=== PATIENT | female | born 1970 | race Asian ===

== ENCOUNTER 2016-08-21 21:06 | Inpatient (IN) ==
--- NOTE | 2016-08-21 21:04 | OB/GYN History & Physical ---
Date of Encounter: 08/21/16 Time of Encounter: 21:00 Assessment and Plan (1) 35 weeks gestation of Current visit: Yes Status: Acute we will start Magnesium for seizure ppx, give IV labetalol and repeat BP in 10 mins, draw tox labs, we will deliver via RC/S for severe GHTN vs preeclampsia depending on what the labs show after her BP is no more in the severe range, History of Present Illness HPI: Ms. Dot Bermeo is a 45 year old female @ 34+6 weeks who presents to L and D after she had elevated pressures at home. On L and D, we got pressures in the 190's/100s x 2. Patient does not report visual symptoms, epig pain, has some nausea, no headaches, no SOB, no LOF, VB or ctxs, she has a history of a PC /S for breech presentation. She has tachycardia on Metoprolol and Hypothyroidism and is a GDMA1. Past Med Surg Social Fam HX - Past Medical History Medical history: non-contributory, diabetes, hypertension, other - Past Surgical History Surgical History: - Social History Smoking Status: Never smoker Smokeless Tobacco Status: No Alcohol use: none Obstetrical History - Pregnancies : 3 Para: 1 Term: 1 : 0 Ab's: 0 Livin Medications and Allergies cephALEXin [Keflex] 500 mg PO TID #21 capsule 03/03/16 [Rx] Allergies No Known Allergies Allergy (Verified 03/03/16 18:05) Review of System OB All systems PM: reviewed and no additional remarkable complaints except as stated Exam - Constitutional Constitutional: well developed - HEENT HEENT: PERRL - Neck Neck exam: full ROM - Lungs Respiratory exam: CTAB - Cardiovascular Cardiovascular exam: RRR - Abdomen Abdomen: Present: gravid - Extremities Extremities exam: pedal edema Results All other labs normal.
[~2016-08-21 21:06] MED LIST: *HR* Labetalol 20 MG/4 ML SYRINGE IVP ONE; Famotidine 20 MG/2 ML VIAL IVP PRN; Naloxone 0.4 MG/ML INJ IVP PRN
[2016-08-21] MEDS ORDERED: Ringers Solution, Lactated 1,000 ML ONE ×2 (21:08→23:30)
[2016-08-21] MEDS ORDERED: *HR* Labetalol 20 MG/4 ML SYRINGE IVP ONE (21:08)
[2016-08-21 21:15] LABS: Basophils % 0.2 %; Eosinophils # 0.1 K/mcL (0.0-0.6); Eosinophils % 0.8 %; Hematocrit 40.8 % (35.3-44.9); Hemoglobin 13.7 g/dL (11.5-15.4); Immature Granulocytes % 0.3 % (0-4); Lymphocytes # 2.2 K/mcL (0.6-4.6); Lymphocytes % 33.4 %; Mean Corpuscular HGB Conc 33.6 g/dL (31.6-35.5); Mean Corpuscular Hemoglobin 29.5 pg (28.0-33.3); Mean Corpuscular Volume 87.7 fL (83.0-100.0); Mean Platelet Volume 14.1 fL (9.4-12.4); Monocytes # 0.5 K/mcL (0.0-1.3); Monocytes % 7.2 %; Neutrophils # 3.8 K/mcL (1.6-8.9); Platelet Count 109 K/mcL (140-400); Red Blood Count 4.65 M/mcL (3.82-4.97); Red Cell Distribution Width 13.2 % (11.5-14.5); Segmented Neutrophils % 58.1 %
[2016-08-21 21:29] LABS: Alanine Aminotransferase 13 Units/L (0-55); BUN/Creatinine Ratio 13 (6-26); Blood Urea Nitrogen 9 mg/dL (7-20); eGFR For African Americans > 60 (> 60); eGFR For Non-African Americans > 60 (> 60)
[2016-08-21 21:32] LABS: Aspartate Amino Transferase 27 Units/L (5-34)
[2016-08-21 21:33] LABS: Lactate Dehydrogenase 307 Units/L (159-327)
[2016-08-21] MEDS: *HR* Labetalol 20 MG/4 ML SYRINGE IVP ONE ×2 (21:39→22:14)
[2016-08-21] MEDS: Magnesium Sulfate 20 gm/500mL 20 GM/500 ML IV.SOLN IVC SCH ×2 (21:50→21:57)
[2016-08-21] MEDS ORDERED: Metoclopramide 10 MG/2 ML VIAL IVP ONE (21:50)
[2016-08-21 22:04] LABS: Protein/Creatinine Ratio,Urine 0.68 mg/mg (0-0.20)
--- NOTE | 2016-08-21 22:19 | Anesthesia Evaluation PreOp ---
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: Denies Any Significant HX Other Medical History: Diabetes Type II (gestational), Thyroid (hyperthyroidism , treated with antithyroid agent and since euthyroid) Anesthesia History: No Prior Anesthetic Complications, Past Anesthesia (no prior anesthetics, no family history of problems) : Yes (34 plus 6, ) Alcohol Use: none Drug use: none Medications and Allergies No Known Home Drugs 08/21/16 [History] Allergies No Known Allergies Allergy (Verified 03/03/16 18:05) - Meds/Allergy Pre-op Review Medications Reviewed: Yes Allergies Reviewed: Yes Beta Blockers on Current Med List: No Anesthesia Results - Labs 08/21/16 21:00 08/21/16 21:00 Anesthesia Exam O2 Sat Height 1.6 m Weight 89 kg bp 172/99 hr 76 rr 20 spo2 98 Height: 63 Weight: 89 NPO (# of Hours): 4.5 hours ago had a full meal Pain Scale: 1 - HEENT Pupil (Motor): Pupils equal Mallampati: II Teeth: Normal Oral Opening: Greater than 3 - JEWEL LATHE OPERATOR LOC: Oriented JEWEL LATHE OPERATOR Motor: Normal RUE, Normal LUE, Normal RLE, Normal LLE, Normal Face JEWEL LATHE OPERATOR Sensory: Normal: RUE, LUE, RLE, LLE, Face - Cardiac Rhythm: Regular Murmur: None JVD: No Carotid Bruit: No - Pulmonary Breath Sounds: bilateral Clear Respiratory Effort: Symmetrical Anesthesia Assess/Plan ASA Score: 3 (Uncontrolled hypertension with steady decline in PLT count over the last several weeks. After lengthy discussion with Dr Mackey about patient's recent meal and balancing the risk of aspiration with the risk of eclampsia d/t uncontrolled HTN it is agreed to proceed with cesarian section. All risks discussed at bedside with patient.), E Modified Sagar Scale for Level of Consciousness: Cooperative, oriented, and tranquil Anesthetic Plan: Regional Monitoring Plan: Standard Monitors Recovery Plan: PACU
--- NOTE | 2016-08-21 22:20 | OB Labor Progress Note ---
Date of Encounter: 08/21/16 Time of Encounter: 22:17 Labor Progress Note - Subjective Subjective: patient now on Mg - Vital Signs Vital Signs: BP labile, s/p 20mg and 40mg IV labetalol, range is from 130's-170's systolic - Heart Tones Heart Tones: FHT CAT 1 - Plan Plan: based on labs, patient has preeclampsia with severe features so we will be proceeding to delivery via RC/S, patient to continue on MG for seizure ppx
[2016-08-21] MEDS ORDERED: *HR* Oxytocin 10 UNIT/ML VIAL IM ONE (22:26)
[2016-08-21] MEDS ORDERED: *HR* Morphine Sulfate/PF 5 MG/10 ML AMPUL ONE (22:30)
[2016-08-21] MEDS ORDERED: EPHEDrine 50 MG/ML VIAL ONE (22:33)
[2016-08-21] MEDS ORDERED: Ondansetron 4 MG/2 ML VIAL IVP ONE (23:39)
[2016-08-21] MEDS ORDERED: *HR* Morphine 2 MG/ML SYRINGE IVP PRN (23:39)
[2016-08-21] MEDS ORDERED: *HR* Labetalol 100 MG/20 ML MDV IVP PRN (23:39)
[2016-08-22] MEDS ORDERED: Simethicone 80 MG TAB.CHEW PO PRN (00:41)
[2016-08-22] MEDS ORDERED: Ondansetron 4 MG/2 ML VIAL IVP PRN (00:41)
[2016-08-22] MEDS ORDERED: Metoclopramide 10 MG/2 ML VIAL IVP PRN (00:41)
--- NOTE | 2016-08-22 00:41 | OB/GYN Procedure Note ---
Section - Date of procedure: 08/22/16 Preop diagnosis: desires repeat , other Post-op diagnosis: same Procedure: repeat low transverse Surgeon: Darron Díaz Estimated blood loss (cc): 800 Anesthesia Type: Spinal section complications: none Disposition: L&D Recovery Room Specimens: Placenta, Cord blood - Infant (s) A Infant Delivery Date: 08/22/16 Infant Delivery Time: 23:45 Presentation: vertex Position: OA Route of delivery: other Gender: Female Viability: Viable Pounds: 6 Ounces: 4 Specimens collected: cord blood Placenta: uterine exploration Cord: 3 umbilical vessels - Narrative Narrative: Patient was brought to the operating room where spinal anesthesia was administered without difficulty. The abdomen was prepped and draped in a sterile fashion. A Pfannenstiel incision was made and carried sharply down to the level of fascia. The fascia was incised transversely. The fascia was dissected away from the underlying rectus muscles. With sharp and blunt dissection, rectus muscles were divided in midline. The perineum was entered bluntly. A transverse incision was made across the bladder peritoneum. The bladder was dissected away from the underlying lower uterine segment. Bladder retractor was placed to protect the bladder. The lower uterine segment was entered sharply with a scalpel. Incision was manually extended. Clear amniotic fluid was encountered. The 's head was pulled up and delivered easily as were the shoulders and body. The mouth and oropharynx were suctioned. The cord was clamped and cut. The infant was passed off to the waiting textile examiner in satisfactory condition. Placenta was extracted completely and found to be intact. Uterus was explored and found to be empty. Uterus was delivered through the abdominal incision and massaged vigorously. Intravenous Pitocin was administered. Clamps were placed about the margins of the uterine incision, which was closed primarily with a running locking stitch of 0 Vicryl with adequate hemostasis. Secondary running locking stitch was placed for extra strength to the wound. The uterus was returned to its proper anatomic position in the abdomen. The fascia was closed with a simple running stitch of 0 vicryl. The subcutaneous tissue was closed with 3-0 vicryl. The skin was closed with running subcuticular of 4-0 vicryl. Patient was brought to the recovery room in satisfactory condition. There were no complications. All sponge, needle, and instrument counts were reported to be correct.
[2016-08-22] MEDS ORDERED: Oxytocin 20 units/ LR 1000 mL 20 UNIT/1,000 ML BAG IVC SCH (00:45)
[2016-08-22] MEDS ORDERED: Ringers Solution, Lactated 1,000 ML IVC SCH (00:45)
[2016-08-22] MEDS ORDERED: *HR* Morphine 2 MG/ML SYRINGE IVP PRN (00:55)
[2016-08-22] MEDS ORDERED: Calcium Gluconate 1,000 MG/10 ML VIAL IVPB ONE (03:05)
--- NOTE | 2016-08-22 07:11 | Anesthesia Evaluation Post Op ---
Date of Encounter: 08/22/16 Time of Encounter: 07:11 - Vital Signs Vital Signs: Vital Signs/O2 Sat, Most Current Temp Pulse Resp BP Pulse Ox 97.9 F 82 16 137/88 96 08/22/16 05:43 08/22/16 06:48 08/22/16 06:48 08/22/16 06:48 08/22/16 05:43 - Lungs Lungs: Clear Ascult./Percussion - Airway Airway: Non-obstructed - Cardiovascular Regular Rate - Mental Status Mental Status: Alert & Oriented, Answers Appropriately - Pain Pain Scale: 0 - Nausea Vomiting Nausea Vomiting: Not Present - Hydration Hydration: Tolerates oral liquids, Sheldon catheter - Discharge PostOp Status: Transfer Patient to floor
[2016-08-22] MEDS: Prenatal Vit/FA 1 EACH TABLET PO SCH (08:09)
[2016-08-22] MEDS: Magnesium Sulfate 20 gm/500mL 20 GM/500 ML IV.SOLN IVC SCH (08:10)
[2016-08-22 09:01] LABS: Basophils % 0.2 %; Eosinophils % 0.1 %; Hematocrit 39.4 % (35.3-44.9); Hemoglobin 13.4 g/dL (11.5-15.4); Immature Granulocytes % 0.2 % (0-4); Immature Platelets 27.6 % (1.1-6.1); Lymphocytes # 1.5 K/mcL (0.6-4.6); Lymphocytes % 12.2 %; Mean Corpuscular Hemoglobin 29.9 pg (28.0-33.3); Mean Corpuscular Volume 87.9 fL (83.0-100.0); Mean Platelet Volume 13.5 fL (9.4-12.4); Monocytes # 0.5 K/mcL (0.0-1.3); Monocytes % 3.7 %; Neutrophils # 10.3 K/mcL (1.6-8.9); Platelet Count 106 K/mcL (140-400); Red Blood Count 4.48 M/mcL (3.82-4.97); Red Cell Distribution Width 13.1 % (11.5-14.5); Segmented Neutrophils % 83.6 %
[2016-08-22 09:13] LABS: Alanine Aminotransferase 12 Units/L (0-55); Aspartate Amino Transferase 26 Units/L (5-34); BUN/Creatinine Ratio 10 (6-26); Blood Urea Nitrogen 7 mg/dL (7-20); Uric Acid 5.3 mg/dL (2.6-6.0); eGFR For African Americans > 60 (> 60); eGFR For Non-African Americans > 60 (> 60)
[2016-08-22 09:14] LABS: Lactate Dehydrogenase 369 Units/L (159-327)
--- NOTE | 2016-08-22 12:00 | OB/GYN Progress Note ---
Date of Encounter: 08/22/16 Time of Encounter: 11:58 - Assessment and Plan (1) Status post repeat low transverse section Current Visit: Yes Status: Acute Patient is doing well postoperatively. (2) Pre-eclampsia, Current Visit: Yes Status: Acute Patient is now having rebounding hypertension. Labetalol has been initiated. Magnesium will be discontinued after 24 hours. Appropriate urine output. Repeat labs tomorrow (3) Thrombocytopenia complicating Current Visit: Yes Status: Acute This has remained stable prior to and after repeat . Continue to monitor Subjective - Subjective Principal diagnosis: POD1/PPD1 Interval history: Patient is day one/postop day 1 for repeat for severe preeclampsia. She is on magnesium. Her blood pressures have started to increase today and she has been started on labetalol 100 mg every 12 hours. She started breaking through and having blood pressures of 150s over high 80s and the labetalol has since been increased to 200 every 12. She denies headache , blurred vision or epigastric pain. She states that she feels much better with the magnesium this than with her previous . She denies any /postoperative pain. She reports her vaginal bleeding is minimal. She denies any flatus. Patient reports: appetite normal, voiding normally (Good urine output, urine clear in Sheldon), pain well controlled, no nauseated : doing well Objective - Vital Signs Latest vital signs: Vital Signs Temp Pulse Pulse Resp BP Pulse Ox 08/22/16 10:45 82 14 152/89 08/22/16 09:45 88 16 147/87 08/22/16 08:40 88 16 147/87 08/22/16 07:40 83 83 16 145/95 08/22/16 06:48 82 16 137/88 08/22/16 05:43 97.9 F 85 16 131/81 96 08/22/16 04:46 97.6 F 87 16 148/69 96 08/22/16 03:50 16 08/22/16 03:46 97.5 F L 79 16 142/87 97 08/22/16 03:42 79 16 142/87 08/22/16 03:12 97.3 F L 76 16 146/96 96 08/22/16 02:42 97.4 F L 71 16 156/94 96 08/22/16 01:40 70 14 157/96 08/22/16 00:40 75 14 122/84 Intake and Output 08/21/16 08/22/16 08/22/16 23:59 07:59 15:59 Intake Total 100 / 100 500 / 500 240 / 240 Output Total 2170 / 2170 300 / 300 Balance 100 / 100 -1670 / -1670 -60 / -60 Intake: IV Fluids 100 / 100 500 / 500 Magnesium Sulfate Premix 500 / 500 20 gm/500mL 20 gm In 500 ml @ 2 GM/HR 50 mls/hr IVC .Q10H [facility] Rx#: [id number] Magnesium Sulfate Premix 100 / 100 4gm/100mL 4 gm In 100 ml @ 200 mls/hr IVPB ONCE ONE Rx#:[id number] Oral 0 / 0 240 / 240 Output: Urine 1370 / 1370 300 / 300 Emesis 300 / 300 Catheter 500 / 500 Other: Meal Breakfast Percent of Meal Consumed 30% Weight 89 kg 86.4 kg Patient Weight 08/22/16 23:59 Weight 86.4 kg - Exam Lungs: bilateral: normal Chest: Normal S1, Normal S2 Extremities: Present: edema (1+ pretibial bilaterally). Absent: tenderness Abdomen: Present: normal appearance, soft. Absent: distention (Bowel sounds present), tenderness Incision: Present: dressed (An edge of serous sanguinous fluid friedman the inferior margin of the dressing. This is not extended since marked) Uterus: Present: firm - Labs Labs: Laboratory Results - last 24 hr 08/21/16 08/21/16 08/21/16 21:00 21:00 21:45 WBC 6.5 RBC 4.65 Hgb 13.7 Hct 40.8 MCV 87.7 MCH 29.5 MCHC 33.6 RDW 13.2 Plt Count 109 L MPV 14.1 H Immature Gran % 0.3 Seg Neutrophils % 58.1 Lymphocytes % 33.4 Monocytes % 7.2 Eosinophils % 0.8 Basophils % 0.2 Neutrophils # 3.8 Lymphocytes # 2.2 Monocytes # 0.5 Eosinophils # 0.1 Basophils # 0.0 Immature Plt Fraction BUN 9 Creatinine 0.70 Est GFR ( Amer) > 60 Est GFR (Non-Af Amer) > 60 BUN/Creatinine Ratio 13 Uric Acid 5.0 AST 27 ALT 13 Lactate Dehydrogenase 307 Urine Creatinine 38 Protein/Creatinin Ratio 0.68 H Urine Total Protein 26 H 08/22/16 08/22/16 08:53 08:53 WBC 12.3 H D RBC 4.48 Hgb 13.4 Hct 39.4 MCV 87.9 MCH 29.9 MCHC 34.0 RDW 13.1 Plt Count 106 L MPV 13.5 H Immature Gran % 0.2 Seg Neutrophils % 83.6 Lymphocytes % 12.2 Monocytes % 3.7 Eosinophils % 0.1 Basophils % 0.2 Neutrophils # 10.3 H Lymphocytes # 1.5 Monocytes # 0.5 Eosinophils # 0.0 Basophils # 0.0 Immature Plt Fraction 27.6 H BUN 7 Creatinine 0.71 Est GFR ( Amer) > 60 Est GFR (Non-Af Amer) > 60 BUN/Creatinine Ratio 10 Uric Acid 5.3 AST 26 ALT 12 Lactate Dehydrogenase 369 H Urine Creatinine Protein/Creatinin Ratio Urine Total Protein - Allied health notes Allied health notes reviewed: nursing
[2016-08-22] MEDS: *HR* OxyCODONE/APAP 5/325 TABLET PO PRN (20:58)
[2016-08-23] MEDS: *HR* OxyCODONE/APAP 5/325 TABLET PO PRN ×3 (02:52→12:31)
[2016-08-23 05:54] LABS: Basophils % 0.1 %; Eosinophils % 0.3 %; Hematocrit 38.3 % (35.3-44.9); Hemoglobin 12.9 g/dL (11.5-15.4); Immature Granulocytes % 0.3 % (0-4); Lymphocytes # 1.4 K/mcL (0.6-4.6); Lymphocytes % 13.7 %; Mean Corpuscular HGB Conc 33.7 g/dL (31.6-35.5); Mean Corpuscular Volume 89.1 fL (83.0-100.0); Mean Platelet Volume 13.6 fL (9.4-12.4); Monocytes # 0.4 K/mcL (0.0-1.3); Monocytes % 4.3 %; Neutrophils # 8.2 K/mcL (1.6-8.9); Platelet Count 113 K/mcL (140-400); Red Cell Distribution Width 13.3 % (11.5-14.5); Segmented Neutrophils % 81.3 %
[2016-08-23 06:11] LABS: Alanine Aminotransferase 14 Units/L (0-55); Aspartate Amino Transferase 26 Units/L (5-34); BUN/Creatinine Ratio 9 (6-26); Blood Urea Nitrogen 7 mg/dL (7-20); Uric Acid 6.1 mg/dL (2.6-6.0); eGFR For African Americans > 60 (> 60); eGFR For Non-African Americans > 60 (> 60)
[2016-08-23 06:13] LABS: Lactate Dehydrogenase 391 Units/L (159-327)
--- NOTE | 2016-08-23 07:57 | OB/GYN Progress Note ---
Date of Encounter: 08/23/16 Time of Encounter: 07:55 - Assessment and Plan (1) Pre-eclampsia, Current Visit: Yes Status: Acute Continue current treatment plan. Repeat labs in AM (2) Status post repeat low transverse section Current Visit: Yes Status: Acute Stable POD #2. Continue current management. PIH labs in AM. Subjective - Subjective Interval history: Pt states feel well. Pain well managed on po pain medication. Pt states still has slightly blurry vision from magnesium, denies headache or epigastric pain. Up and ambulates well. infant in NICU Patient reports: appetite normal, voiding normally, pain well controlled, ambulating normally Sabina: doing well, in NICU Objective - Vital Signs Latest vital signs: Vital Signs Temp Pulse Resp BP Pulse Ox 08/23/16 03:00 97.9 F 86 14 158/71 95 08/22/16 23:45 98.2 F 85 16 145/86 94 08/22/16 22:56 93 16 130/88 95 08/22/16 22:45 93 16 130/88 08/22/16 21:45 82 14 137/89 95 08/22/16 20:45 98.9 F 87 16 168/88 94 08/22/16 20:40 87 16 168/88 94 08/22/16 19:35 87 16 149/81 08/22/16 19:32 98.2 F 87 16 149/81 93 08/22/16 18:40 86 14 130/83 08/22/16 17:40 101 14 131/74 08/22/16 16:40 96 14 128/81 08/22/16 14:45 83 16 144/88 08/22/16 13:40 83 14 144/85 08/22/16 12:40 105 16 160/93 08/22/16 11:40 83 16 158/94 08/22/16 10:45 82 14 152/89 08/22/16 09:45 88 16 147/87 08/22/16 08:40 88 16 147/87 Intake and Output 08/22/16 08/22/16 08/23/16 15:59 23:59 07:59 Intake Total 1700 / 1700 1000 / 1000 Output Total 1115 / 1115 2775 / 2775 1200 / 1200 Balance 585 / 585 -2775 / -2775 -200 / -200 Intake: IV Fluids 920 / 920 Pitocin 20 unit In 1,000 920 / 920 ml @ 125 mls/hr IVC .Q8H [facility] Rx#:[id number] Oral 780 / 780 1000 / 1000 Output: Urine 1115 / 1115 2775 / 2775 1200 / 1200 Other: Meal Lunch Percent of Meal Consumed 100% Weight 82.9 kg Patient Weight 08/23/16 23:59 Weight 82.9 kg - Exam Lungs: bilateral: normal Chest: Normal S1, Normal S2 Extremities: Present: normal Abdomen: Present: normal appearance, soft Incision: Present: dressed (small amount of dried drainage noted) Uterus: Present: normal, firm - Labs Labs: Laboratory Results - last 24 hr 08/22/16 08/22/16 08/23/16 08:53 08:53 05:26 WBC 12.3 H D 10.1 RBC 4.48 4.30 Hgb 13.4 12.9 Hct 39.4 38.3 MCV 87.9 89.1 MCH 29.9 30.0 MCHC 34.0 33.7 RDW 13.1 13.3 Plt Count 106 L 113 L MPV 13.5 H 13.6 H Immature Gran % 0.2 0.3 Seg Neutrophils % 83.6 81.3 Lymphocytes % 12.2 13.7 Monocytes % 3.7 4.3 Eosinophils % 0.1 0.3 Basophils % 0.2 0.1 Neutrophils # 10.3 H 8.2 Lymphocytes # 1.5 1.4 Monocytes # 0.5 0.4 Eosinophils # 0.0 0.0 Basophils # 0.0 0.0 Immature Plt Fraction 27.6 H BUN 7 Creatinine 0.71 Est GFR ( Amer) > 60 Est GFR (Non-Af Amer) > 60 BUN/Creatinine Ratio 10 Uric Acid 5.3 AST 26 ALT 12 Lactate Dehydrogenase 369 H 08/23/16 05:26 WBC RBC Hgb Hct MCV MCH MCHC RDW Plt Count MPV Immature Gran % Seg Neutrophils % Lymphocytes % Monocytes % Eosinophils % Basophils % Neutrophils # Lymphocytes # Monocytes # Eosinophils # Basophils # Immature Plt Fraction BUN 7 Creatinine 0.76 Est GFR ( Amer) > 60 Est GFR (Non-Af Amer) > 60 BUN/Creatinine Ratio 9 Uric Acid 6.1 H AST 26 ALT 14 Lactate Dehydrogenase 391 H
[2016-08-23] MEDS ORDERED: Lanolin 28 GM TUBE TP PRN (08:00)
[2016-08-23] MEDS: Prenatal Vit/FA 1 EACH TABLET PO SCH (08:10)
[2016-08-23] MEDS: Ibuprofen 600 MG TABLET PO PRN ×2 (12:34→20:10)
[2016-08-24] MEDS: Ibuprofen 600 MG TABLET PO PRN ×2 (02:32→08:01)
[2016-08-24 03:35] LABS: Basophils % 0.1 %; Eosinophils # 0.1 K/mcL (0.0-0.6); Eosinophils % 1.2 %; Hematocrit 35.2 % (35.3-44.9); Hemoglobin 11.6 g/dL (11.5-15.4); Immature Granulocytes % 0.2 % (0-4); Lymphocytes # 2.3 K/mcL (0.6-4.6); Lymphocytes % 25.7 %; Mean Corpuscular Hemoglobin 29.5 pg (28.0-33.3); Mean Corpuscular Volume 89.6 fL (83.0-100.0); Mean Platelet Volume 12.9 fL (9.4-12.4); Monocytes # 0.5 K/mcL (0.0-1.3); Monocytes % 5.3 %; Neutrophils # 6.1 K/mcL (1.6-8.9); Platelet Count 131 K/mcL (140-400); Red Blood Count 3.93 M/mcL (3.82-4.97); Red Cell Distribution Width 13.4 % (11.5-14.5); Segmented Neutrophils % 67.5 %
[2016-08-24 03:49] LABS: Alanine Aminotransferase 12 Units/L (0-55); Aspartate Amino Transferase 22 Units/L (5-34); BUN/Creatinine Ratio 14 (6-26); Blood Urea Nitrogen 11 mg/dL (7-20); Lactate Dehydrogenase 311 Units/L (159-327); Uric Acid 6.3 mg/dL (2.6-6.0); eGFR For African Americans > 60 (> 60); eGFR For Non-African Americans > 60 (> 60)
[2016-08-24] MEDS: Prenatal Vit/FA 1 EACH TABLET PO SCH (08:02)
--- NOTE | 2016-08-24 09:35 | Discharge Summary ---
Date of Encounter: 08/24/16 Time of Encounter: 09:33 - Discharge Diagnosis (1) Pre-eclampsia, Priority: Secondary Status: Acute Comments: VSS Will discharge home on labetalol F/U in office in 2 weeks for blood pressure check (2) Status post repeat low transverse section Priority: Primary Status: Acute Comments: Doing well on post-op day 3. Pain well controlled VSS No difficulty urinating, has had 3 bowel movements Lochia light and without clots Discharge home today with baby (3) Thrombocytopenia complicating Priority: Secondary Status: Acute Comments: Labs stable - Discharge Medications Prescriptions: OxyCODONE/APAP 5/325 [Percocet 5/325 MG] 1 each PO Q4HR PRN #30 tablet PRN Reason: Moderate pain 4-6 Ibuprofen [Motrin] 600 mg PO Q6HR PRN #60 tablet PRN Reason: Pain Docusate [Colace] 100 mg PO BID #30 capsule Labetalol [Trandate] 200 mg PO BID 60 Days Home Medications: Breast Pump [BREAST PUMP] 1 each .ROUTE AD #1 each 08/24/16 [Rx] Docusate [Colace] 100 mg PO BID #30 capsule 08/24/16 [Rx] Ferrous Sulfate 325 mg PO DAILY tablet 08/24/16 [Rx] Ibuprofen [Motrin] 600 mg PO Q6HR PRN #60 tablet 08/24/16 [Rx] Labetalol [Trandate] 200 mg PO BID 60 Days 08/24/16 [Rx] Lanolin 1 appl TP QID PRN #0 tube 08/24/16 [Rx] OxyCODONE/APAP 5/325 [Percocet 5/325 MG] 1 each PO Q4HR PRN #30 tablet 08/24/16 [Rx] Vit/FA 1 each PO DAILY #0 tablet 08/24/16 [Rx] Simethicone [Gas-X] 80 mg PO TID PRN #0 tab.chew 08/24/16 [Rx] Allergies/Adverse Reactions: Allergies No Known Allergies Allergy (Verified 03/03/16 18:05) Data Procedures and tests throughout hospitalization: Laboratory Tests 08/21/16 08/21/16 08/21/16 21:00 21:00 21:45 WBC 6.5 RBC 4.65 Hgb 13.7 Hct 40.8 MCV 87.7 MCH 29.5 MCHC 33.6 RDW 13.2 Plt Count 109 L MPV 14.1 H Immature Gran % 0.3 Seg Neutrophils % 58.1 Lymphocytes % 33.4 Monocytes % 7.2 Eosinophils % 0.8 Basophils % 0.2 Neutrophils # 3.8 Lymphocytes # 2.2 Monocytes # 0.5 Eosinophils # 0.1 Basophils # 0.0 Immature Plt Fraction BUN 9 Creatinine 0.70 Est GFR ( Amer) > 60 Est GFR (Non-Af Amer) > 60 BUN/Creatinine Ratio 13 Uric Acid 5.0 AST 27 ALT 13 Lactate Dehydrogenase 307 Urine Creatinine 38 Protein/Creatinin Ratio 0.68 H Urine Total Protein 26 H 08/22/16 08/22/16 08/23/16 08:53 08:53 05:26 WBC 12.3 H D 10.1 RBC 4.48 4.30 Hgb 13.4 12.9 Hct 39.4 38.3 MCV 87.9 89.1 MCH 29.9 30.0 MCHC 34.0 33.7 RDW 13.1 13.3 Plt Count 106 L 113 L MPV 13.5 H 13.6 H Immature Gran % 0.2 0.3 Seg Neutrophils % 83.6 81.3 Lymphocytes % 12.2 13.7 Monocytes % 3.7 4.3 Eosinophils % 0.1 0.3 Basophils % 0.2 0.1 Neutrophils # 10.3 H 8.2 Lymphocytes # 1.5 1.4 Monocytes # 0.5 0.4 Eosinophils # 0.0 0.0 Basophils # 0.0 0.0 Immature Plt Fraction 27.6 H BUN 7 Creatinine 0.71 Est GFR ( Amer) > 60 Est GFR (Non-Af Amer) > 60 BUN/Creatinine Ratio 10 Uric Acid 5.3 AST 26 ALT 12 Lactate Dehydrogenase 369 H Urine Creatinine Protein/Creatinin Ratio Urine Total Protein 08/23/16 08/24/16 08/24/16 05:26 03:26 03:26 WBC 9.0 RBC 3.93 Hgb 11.6 Hct 35.2 L MCV 89.6 MCH 29.5 MCHC 33.0 RDW 13.4 Plt Count 131 L MPV 12.9 H Immature Gran % 0.2 Seg Neutrophils % 67.5 Lymphocytes % 25.7 Monocytes % 5.3 Eosinophils % 1.2 Basophils % 0.1 Neutrophils # 6.1 Lymphocytes # 2.3 Monocytes # 0.5 Eosinophils # 0.1 Basophils # 0.0 Immature Plt Fraction BUN 7 11 Creatinine 0.76 0.77 Est GFR ( Amer) > 60 > 60 Est GFR (Non-Af Amer) > 60 > 60 BUN/Creatinine Ratio 9 14 Uric Acid 6.1 H 6.3 H AST 26 22 ALT 14 12 Lactate Dehydrogenase 391 H 311 Urine Creatinine Protein/Creatinin Ratio Urine Total Protein Labs on day of discharge: Labs from last 24 hours 08/24/16 08/24/16 03:26 03:26 WBC 9.0 RBC 3.93 Hgb 11.6 Hct 35.2 L MCV 89.6 MCH 29.5 MCHC 33.0 RDW 13.4 Plt Count 131 L MPV 12.9 H Immature Gran % 0.2 Seg Neutrophils % 67.5 Lymphocytes % 25.7 Monocytes % 5.3 Eosinophils % 1.2 Basophils % 0.1 Neutrophils # 6.1 Lymphocytes # 2.3 Monocytes # 0.5 Eosinophils # 0.1 Basophils # 0.0 BUN 11 Creatinine 0.77 Est GFR ( Amer) > 60 Est GFR (Non-Af Amer) > 60 BUN/Creatinine Ratio 14 Uric Acid 6.3 H AST 22 ALT 12 Lactate Dehydrogenase 311 Date of admission: 08/21/16 21:06 Primary care physician: PCP JOSE Discharging clinician: Sameera Russell Anticipated date of discharge: 08/24/16 - Patient Status Disposition: Home, Self-Care Condition: Good Functional capacity at discharge: independent ambulation - Discharge Instructions Follow Up With: JOSE,PCP [Primary Care Provider] - Darron Díaz MD [Partnered Physician] - Additional Instructions: Perineal Care: Always wipe front to back Change your pad frequently Use your jose bottle with warm water and spray front to back Do not douche, use tampons, have sexual intercourse or put anything in your vagina for 4-6 weeks after delivery Bleeding: Vaginal bleeding can last up to 6 weeks Your menstrual period may return as early as 6 weeks after you are discharged from the hospital Breanna/Stitches Care: Vaginal Delivery Vaginal stitches will dissolve within 4-6 weeks Follow perineal care instructions Care Stitches will dissolve on their own If you have breanna, they will need to be removed in the doctors office within 5-7 days. You may shower with stitches or breanna Drip plan or soapy water over the incision to clean. Pat dry gently with a clean towel. Make sure you completely dry under the skin folds DO NOT USE powders, lotions, rubbing alcohol or hydrogen peroxide on or around your incision. This will slow your wound healing It is normal to have soreness, burning, tingling, itchiness and/or numbness as your incision heals Activity: Rest frequently Do not lift anything heavier than a gallon of milk, up to 10-15 pounds No driving for 1-2 weeks for Vaginal delivery No driving for 2-4 weeks for delivery Take stairs slowly, one at a time Gradually increase your daily activity until you are back to your normal routine Do not exercise until you have had your follow-up appointment Bathing: Take a shower daily Do not take a tub bath for the first 4 weeks Diet: Drink plenty of water and fruit juices Eat a well-balanced diet with foods high in fiber such as fruits and vegetables Depression: Your hormones have a major impact on your feelings and emotions. Hormone imbalance may cause changes in your mood, creating unfamiliar thoughts and actions. Support is available to help you understand and cope with these feelings and mood changes. If you answer yes to any of the following questions, please call your health care provider: Are you having trouble sleeping? Are you feeling isolated? Have you lost your appetite? Are you having thoughts of hurting yourself or others? WARNING SIGNS: Heavy bleeding from the vagina (blood is bright red and soaks a sanitary pad in an hour or less.) Passing a blood clot larger than your fist Discharge from the vagina that has a bad odor Temperature over 100.4 F, or if you feel cold and have chills An episiotomy site that is warm, swollen or oozing. Use a mirror if needed Urination (pee) that is painful, very red and swollen or leaking fluid An incision that is painful, very red and swollen and leaking fluid An incision that has come open Breasts that are painful or full with flu like symptoms Redness, warmth or swelling in the calf of your leg Trouble breathing, dizziness, visual disturbance or faintness *Notify your health care provider immediately or go to the nearest Emergency Room if you experience any of the above signs.* To contact the nurses station 24 hours a day, For non-urgent, routine questions, please call the office at - Diet and Activity Activity: increase activity as tolerated Diet: regular diet Hospital Course Reason for admission: IUP - , section, pre-eclampsia Delivery: section Episiotomy: none Laceration: none Other procedures: none complications: none Discharge diagnosis: delivery [place] baby: female Time Attestation: Total time spent providing and/or coordinating discharge services: Time Spent: Less than 30 minutes - VTE Documentation of Mechanical Device: Intermittent pneumatic compression device Exam - Constitutional Vitals: Temp Pulse Resp BP Pulse Ox 97.8 F 94 16 156/87 97 08/24/16 07:55 08/24/16 07:55 08/24/16 07:55 08/24/16 07:55 08/24/16 07:55 General appearance IM: cooperative, A&O X 3, pleasant - Respiratory Respiratory exam: Present: CTAB - Cardiovascular Cardiovascular exam IM: Present: RRR, +S1, +S2 - GI/Abdominal GI/Abdominal exam IM: normal bowel sounds, soft Incision: normal, dry, intact - Rectal Rectal exam: deferred - Uterine Tone: Firm Uterus Position: At Umbilicus, Midline - Extremities Exam Extremities exam IM: Present: normal capillary refill, normal inspection, pedal edema (2+ BLE from toes to 4cm below knees), radial pulses palpable and symetrical - Neurological Exam Neurological exam: alert, oriented X3
[2016-08-24 12:06] VITALS: BP 136/88
== END 2016-08-24 12:28 | disposition home or self-care (01) | DRG 765 ==
LOC: 1NENULAB → 1NENUOBS 08-22 02:48
PROVIDERS: ADMIT Student in an Organized Health Care Education/Training Program; ATTEND Student in an Organized Health Care Education/Training Program